=== PATIENT | male | born 1945 | race Caucasian/White ===

== ENCOUNTER → 2018-10-29 | Outpatient (CLI) | payer OTHER ==
[~2018-10-29] MED LIST: REGADENOSON 0.4 MG/5 ML SYRINGE IV ONE
--- NOTE | 2018-10-29 10:31 | ECHOF ---
Referral Reason:Partial Seizure G40.109 MEASUREMENTS -------- HEIGHT: 170.2 cm WEIGHT: 89.8 kg BP: 200/86 RVIDd: 3.1 cm (< 3.3) IVSd: 1.3 cm (0.6 - 1.1) LVIDd: 5.3 cm (3.9 - 5.3) LVPWd: 1.3 cm (0.6 - 1.1) IVSs: 1.7 cm LVIDs: 3.7 cm LVPWs: 2.0 cm LA Diam: 3.9 cm (2.7 - 3.8) LAESV Index (A-L): 38.57 ml/m Ao Diam: 3.7 cm (2.0 - 3.7) AV Cusp: 2.6 cm (1.5 - 2.6) MV EXCURSION: 18.048 mm (> 18.000) MV EF SLOPE: 74 mm/s (70 - 150) EPSS: 0.9 cm MV E Ferdinand: 0.83 m/s MV DecT: 306 ms MV A Ferdinand: 0.97 m/s MV E/A Ratio: 0.85 RAP: 5.00 mmHg RVSP: 33.81 mmHg FINDINGS -------- Sinus rhythm. This was a technically good study. The left ventricular size is normal. There is mild concentric left ventricular hypertrophy. Overa ll left ventricular systolic function is normal with, an EF between 55 - 60 %. The right ventricle is normal in size. LA is moderately dilated 34-39 ml/m2 The right atrium is normal in size. The aortic valve is trileaflet and appears structurally normal. Mild mitral annular calcification present. Mild tricuspid regurgitation present. Right ventricular systolic pressure is normal at < 35 mmHg. Trace/mild (physiologic) pulmonic regurgitation. The aortic root size is normal. Normal inferior vena cava with normal inspiratory collapse consistent with estimated right atrial pre ssure of 5 mmHg. The inferior vena cava is mildly dilated. There is no pericardial effusion. CONCLUSIONS -------- 1. Sinus rhythm. 2. This was a technically good study. 3. The left ventricular size is normal. 4. There is mild concentric left ventricular hypertrophy. 5. Overall left ventricular systolic function is normal with, an EF between 55 - 60 %. 6. The right ventricle is normal in size. 7. LA is moderately dilated 34-39 ml/m2 8. The right atrium is normal in size. 9. The aortic valve is trileaflet and appears structurally normal. 10. Mild mitral annular calcification present. 11. Mild tricuspid regurgitation present. 12. Right ventricular systolic pressure is normal at < 35 mmHg. 13. Trace/mild (physiologic) pulmonic regurgitation. 14. The aortic root size is normal. 15. Normal inferior vena cava with normal inspiratory collapse consistent with estimated right atrial pressure of 5 mmHg. 16. The inferior vena cava is mildly dilated. 17. There is no pericardial effusion. WATER OPERATOR: Cici Bernal RDCS
--- NOTE | 2018-10-29 12:34 | EST ---
EXERCISE STRESS AGE: 72 SEX: M HT: 5'7" WT: 200 PROTOCOL: Lexiscan Cardiolite Stress Test HEART RATE REST: 52 BLOOD PRESSURE REST: 173/75 MAXIMUM HEART RATE ACHIEVED: 74 MAXIMUM BLOOD PRESSURE: 173/75 INDICATIONS: Hypertension. CLINICAL INFORMATION: Baseline EKG shows sinus rhythm, normal axis, normal intervals. The patient was given intravenous Lexiscan as per protocol. Did not have chest pain or diagnostic ST-segment depression. CONCLUSION: 1. Negative stress test by EKG criteria. 2. Cardiolite portion of the stress test will be reported separately. MMODL / IJN: [id number] /
--- NOTE | 2018-10-29 12:39 | NM ---
EXAMINATION TYPE: NM stress lexiscan cardiolite DATE OF EXAM: 10/29/2018 COMPARISON: NONE HISTORY: Partial seizure. Hypertension, diabetes, hyperlipidemia, and family history of coronary jannet ry disease. History of tobacco abuse. TECHNIQUE: After the intravenous administration of 9.98 mCi Tc 99m Sestamibi - Cardiolite resting SP ECT images acquired 50 minutes post injection. The patient received 0.4mg Lexiscan, 25.4 mCi Tc 99m Sestamibi - Stress images obtained [address] injection FINDINGS: Review of stress and rest SPECT images demonstrates no distinct perfusion abnormality. Gated analysi s shows normal wall motion with an estimated left ventricular ejection fraction of 49%. TID is calcul ated within normal limits at 0.94 IMPRESSION: 1. No scintigraphic evidence for reversible ischemia. 2. Abnormal ejection fraction of 49%.
== END | disposition home or self-care (01) ==
LOC: RADNMMAIN 08:05
PROVIDERS: ATTEND Family Medicine
DX: I07.1 Rheumatic tricuspid insufficiency (principal); I37.1 Nonrheumatic pulmonary valve insufficiency; I11.9 Hypertensive heart disease without heart failure; I05.9 Rheumatic mitral valve disease, unspecified; E11.9 Type 2 diabetes mellitus without complications; E78.5 Hyperlipidemia, unspecified; R93.1 Abnormal findings on diagnostic imaging of heart and coronary circulation
CPT/HCPCS: 93017; 93306; 78452; A9500

== ENCOUNTER 2020-03-19 07:51 | Day surgery (SDC) | payer OTHER ==
[2020-03-15 11:31] VITALS: BMI 30.5
[~2020-03-19 07:51] MED LIST changes: +LACTATED RINGERS 1,000 ML IV SCH; -REGADENOSON 0.4 MG/5 ML SYRINGE IV ONE
[2020-03-19 08:11] VITALS: TEMP 97.8
[2020-03-19 08:20] LABS: Glucose,Whole Blood 157 mg/dL (75-99)
[2020-03-19] MEDS ORDERED: LACTATED RINGERS 1,000 ML IV ONE (08:23)
[2020-03-19] MEDS ORDERED: PROPOFOL 10 MG/ML 20 ML VIAL IV ONE (08:53)
[2020-03-19] MEDS ORDERED: LIDOCAINE 1% INJ 10MG/ML (20 ML MDV) ONE (08:53)
[2020-03-19 09:24] VITALS: RESP 16
--- NOTE | 2020-03-19 09:26 | P.PCN ---
Date of Procedure: 03/19/20 Description of Procedure: BRIEF HISTORY: Patient is a 74-year-old male with a history of Norris's esophagus who presents for outpatient EGD for evaluation. No dysphagia or odynophagia. Patient is on omeprazole 40 mg daily. Long-standing history of Norris's esophagus. PROCEDURE PERFORMED: Esophagogastroduodenoscopy with biopsy. PREOPERATIVE DIAGNOSIS: Norris's esophagus. ESTIMATED BLOOD LOSS: Minimal. IV sedation per anesthesia. PROCEDURE: After informed consent was obtained, the patient was brought into the endoscopy unit. IV sedation was administered by Anesthesia under continuous monitoring. Initially the Olympus GIF-190 video endoscope was inserted into the mouth. Esophagus intubated without any difficulty. It was gradually advanced into the stomach and duodenum and carefully examined. The bulb and the second part of the duodenum appeared normal, with biopsies taken. The scope at this time was withdrawn to the stomach, adequately insufflated with air, and upon careful examination, mucosa of the antrum, body, cardia and the fundus appeared normal, with biopsies of antrum and body taken. A few diminutive polyps in the body of the stomach likely representing fundic gland polyps. The scope was then withdrawn into the esophagus. The GE junction was located at 36 cm from the incisors with a 4 cm hiatal hernia noted. Patient had 10 cm of Norris's esophagus spanning from 26 cm from the incisors to the GE junction at 36 cm from the incisors with multiple biopsies taken of the Norris's esophagus. There was a nodule located 34 cm from the incisors was biopsied. Otherwise the esophagus appeared normal. The patient tolerated the procedure well. IMPRESSION: 1. Esophageal nodule in distal esophagus were centimeters from the incisors with biopsies taken. 2. Norris's esophagus, biopsied. 3. Hiatal hernia. 4. Biopsies of the duodenum and antrum and body. RECOMMENDATIONS: The findings of this examination were discussed with the patient and his family. Okay to resume diet. Continue current medical management. Would recommend referral to tertiary center for endoscopic ultrasound and possible EMR of distal esophageal nodule in the setting of Norris's esophagus changes been explained to the patient at length.
[2020-03-19 09:37] VITALS: BP 152/72; PULSE 47
== END 2020-03-19 10:08 | disposition home or self-care (01) ==
LOC: ORWHC2ENDO 07:51
PROVIDERS: ATTEND Internal Medicine
DX: K22.70 Barrett's esophagus without dysplasia (principal); K29.50 Unspecified chronic gastritis without bleeding; K22.8 Other specified diseases of esophagus; K44.9 Diaphragmatic hernia without obstruction or gangrene; I10 Essential (primary) hypertension; E11.9 Type 2 diabetes mellitus without complications; K21.9 Gastro-esophageal reflux disease without esophagitis; F17.290 Nicotine dependence, other tobacco product, uncomplicated; E66.9 Obesity, unspecified; Z68.31 Body mass index [BMI] 31.0-31.9, adult; Z79.899 Other long term (current) drug therapy; Z79.84 Long term (current) use of oral hypoglycemic drugs; Z79.1 Long term (current) use of non-steroidal anti-inflammatories (NSAID); Z98.890 Other specified postprocedural states
CPT/HCPCS: 43239; 88305; 88313; J2001; J2704

== ENCOUNTER → 2024-11-25 | Outpatient (CLI) | payer OTHER ==
--- NOTE | 2024-11-25 11:12 | US ---
EXAMINATION TYPE: US kidneys/renal and bladder DATE OF EXAM: 11/25/2024 COMPARISON: NONE CLINICAL INDICATION: Male, 79 years old with history of R94.4 ABNORMAL RESULTS OF KIDNEY FUNCTION KATHY DIES; Abnormal labs. Patient states no symptoms TECHNIQUE: Grayscale imaging of the bilateral kidneys and urinary bladder: FINDINGS: EXAM MEASUREMENTS: Right Kidney: 11.6 x 6.9 x 6.6 cm Left Kidney: 12.2 x 4.4 x 5.6 cm Right Kidney: Mid isoechoic mass= 6.8 x 4.9 x 4.3 cm Left Kidney: Mid pedunculated cortical anechoic= 2.1 x 1.9 x 1.5 cm. Mid medial anechoic lesion = 1.6 x 1.6 x 1.3 cm Bladder: anechoic Left jet seen There is no evidence for hydronephrosis at this point in time. No nephrolithiasis is seen. Mid right renal heterogenous isoechoic mass measuring up to 6.8 cm with increased color flow. Exophytic left r enal mid cortical cyst measuring up to 2.1 cm. Mid left kidney simple cysts measuring up to 1.6 cm. T he urinary bladder is anechoic. IMPRESSION: 1. Heterogenous 6.8 cm right renal mass with increased color flow. Raises concern for renal malignanc y. Further evaluation is recommended with CT or MR abdomen (renal mass protocol). 2. No hydronephrosis or nephrolithiasis. 3. Simple left renal cyst. [facility], , 11/25/2024 11:10 AM
== END | disposition home or self-care (01) ==
LOC: RADUSWWP 10:30
PROVIDERS: ATTEND Family Medicine
DX: N28.1 Cyst of kidney, acquired (principal); R94.4 Abnormal results of kidney function studies; N28.89 Other specified disorders of kidney and ureter
CPT/HCPCS: 76770

== ENCOUNTER → 2024-12-16 | Outpatient (CLI) | payer OTHER ==
[2024-12-16 11:11] LABS: Appearance,Urine Clear (Clear); Bilirubin,Urine Negative (Negative); Blood,Urine Negative (Negative); Color,Urine Light Yellow; Glucose,Urine (UA) Negative (Negative); Ketones,Urine Negative (Negative); Leukocyte Esterase,Urine Negative (Negative); Nitrite,Urine Negative (Negative); PH, Urine 5.5 (5.0-8.0); Protein,Urine Negative (Negative); Specific Gravity,Urine 1.009 (1.001-1.035); Urobilinogen,Urine <2.0 mg/dL (<2.0)
[2024-12-16 15:01] LABS: Basophils # (A) 0.04 X 10*3/uL (0.00-0.10); Basophils % (A) 1.4 %; Eosinophils # (A) 0.06 X 10*3/uL (0.04-0.35); HCT 27.8 % (39.6-50.0); HGB 9.9 g/dL (13.0-17.0); Lymphocytes # (A) 0.98 X 10*3/uL (0.90-5.00); Lymphocytes % (A) 33.3 %; MCH 33.3 pg (27.0-32.0); MCHC 35.6 g/dL (32.0-37.0); MCV 93.6 FL (80.0-97.0); Mean Platelet Volume 10.2 FL (9.5-12.2); Monocytes # (A) 0.34 X 10*3/uL (0.20-1.00); Monocytes % (A) 11.6 %; NRBC Per 100 WBC 0 X 10*3/uL (0.00-0.01); Neutrophils # (A) 1.51 X 10*3/uL (1.80-7.70); Neutrophils % (A) 51.4 %; Platelet Count 162 X 10*3/uL (140-440); RBC 2.97 X 10*6/uL (4.40-5.60); RDW 12.7 % (11.5-14.5); WBC 2.94 X 10*3/uL (4.50-10.00)
[2024-12-16 15:34] LABS: BUN/Creat Ratio 18.83 Ratio (12.00-20.00); Blood Urea Nitrogen 22.6 mg/dL (9.0-27.0); Glucose 103 mg/dL (70-110)
[2024-12-16 15:35] LABS: ALT 7 U/L (10-49); AST 20 U/L (14-35); Albumin 3.7 g/dL (3.8-4.9); Albumin/Globulin Ratio 1.85 Ratio (1.60-3.17); Alkaline Phosphatase 77 U/L (41-126); Calcium 9.2 mg/dL (8.7-10.3); Carbon Dioxide 26.8 mmol/L (21.6-31.8); Chloride 90 mmol/L (96-109); Magnesium 1.2 mg/dL (1.5-2.4); Phosphorus 3.4 mg/dL (2.4-5.1); Potassium 4.3 mmol/L (3.5-5.5); Sodium 128 mmol/L (135-145); Total Bilirubin 0.4 mg/dL (0.3-1.2); Total Protein 5.7 g/dL (6.2-8.2)
== END | disposition home or self-care (01) ==
LOC: LABWHC1 09:48
PROVIDERS: ATTEND Internal Medicine
DX: D64.0 Hereditary sideroblastic anemia (principal); N39.0 Urinary tract infection, site not specified; R39.9 Unspecified symptoms and signs involving the genitourinary system
CPT/HCPCS: 36415; 80053; 81003; 83735; 84100; 85025

== ENCOUNTER → 2025-01-03 | Outpatient (CLI) | payer OTHER ==
--- NOTE | 2025-01-03 09:37 | MR ---
EXAMINATION TYPE: MR kidney wo/w con DATE OF EXAM: 01/03/2025 9:23 AM INDICATION: Patient age:Male; 79 years old; Reason for study: C64.9 MALIGNANT NEOPLASM OF UNSP KIDNEY; [facility]. COMPARISON: Renal ultrasound 11/25/2024 TECHNIQUE: Multiplanar multi-sequence imaging was performed without and with IV contrast. The patie nt was given 7 ccs of Gadobutrol intravenously and dynamic imaging was performed. Post IV contrast harmon btraction images were also submitted for review. FINDINGS: LOWER CHEST: No gross irregularity. ABDOMEN Liver: Noncirrhotic morphology. No focal lesion. Dropped out of signal on in phase imaging. Gallbladder and Bile ducts: Unremarkable. Pancreas: Unremarkable. Spleen: Not enlarged. Drop out of signal on in phase imaging. Adrenal glands: Unremarkable. Kidneys: No hydronephrosis. Several T2 hyperintense and wall simple cyst involving the left kidney wi th largest measuring up to 1.9 cm. Heterogenous enhancing right renal mass involving the mid portions. This measures 4.5 x 6.5 x 4.8 cm in (AP, TV, CC dimensions) with extension into the renal sinus. No definitive extension into the se l vein, IVC or renal artery. There is central regions of lack of enhancement likely representing necr osis. No hydroureter. Difficult to exclude invasion into the collecting system. Stomach and Bowel: Postsurgical changes with susceptibility artifact involving the esophagus and stom ach. Scattered distal colonic diverticulosis without evidence for acute diverticulitis. Peritoneum: No evidence of pneumoperitoneum, free fluid, or adenopathy. Vasculature: Unremarkable. No aortic aneurysm. Abdominal wall: Unremarkable. Musculoskeletal: Multilevel degenerative disc disease with Schmorl's nodes involving the superior end plate of the lower thoracic spine. IMPRESSION: 1. Right mid kidney heterogenously enhancing 6.5 cm mass highly concerning for renal cell carcinoma until proven otherwise. This extends into the renal sinus without definitive involvement of the renal vein, IVC or renal artery. Difficult to exclude invasion into the collecting system however there is no hydroureter. Urology consult is recommended. 2. No other evidence for metastasis within the visualized abdomen. 3. Postsurgical changes of the esophagus and stomach with susceptibility artifact. 4. 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 [facility], , 01/03/2025 9:35 AM
== END | disposition home or self-care (01) ==
LOC: RADMRIMAIN 07:54
PROVIDERS: ATTEND Family Medicine
DX: C64.1 Malignant neoplasm of right kidney, except renal pelvis (principal); Z98.890 Other specified postprocedural states
CPT/HCPCS: 74183; A9585

== ENCOUNTER → 2025-03-10 | Outpatient (CLI) | payer OTHER ==
--- NOTE | 2025-03-10 13:04 | CT ---
EXAMINATION TYPE: CT chest wo con DATE OF EXAM: 03/10/2025 12:53 PM COMPARISON: None CLINICAL INDICATION: Male, 79 years old with history of C64.1 MALIGNANT NEOPLASM OF RIGHT KIDNEY, EXC EPT R; [facility], kidney CA TECHNIQUE: Multiple axial images were obtained through the chest. Sagittal and coronal reformats were created for review. MIP was performed on a separate workstation. Contrast used: mL of (None if empty) Oral contrast used: (None if empty) CT DLP: 415 mGycm, Automated exposure control for dose reduction was used. FINDINGS: LUNGS/ PLEURA: No focal consolidation, pneumothorax or pleural effusion. AIRWAY: Patent and unremarkable. HEART: Size within normal limits. Mild coronary artery calcifications present. MEDIASTINUM: No gross evidence of adenopathy. Small hiatal hernia. VASCULATURE: No aortic aneurysm. MUSCULOSKELETAL: No acute osseous abnormalities remote injuries to right ribs 9 and 8 noted. SOFT TISSUES/LYMPH NODES: Unremarkable. LOWER NECK: No significant findings. UPPER ABDOMEN: No significant findings. IMPRESSION: 1. No evidence for lymphadenopathy or mass. 2. Small hiatal hernia. [facility], , 03/10/2025 1:01 PM
== END | disposition home or self-care (01) ==
LOC: RADCTMAIN 12:37
PROVIDERS: ATTEND Urology
DX: C64.1 Malignant neoplasm of right kidney, except renal pelvis (principal); K44.9 Diaphragmatic hernia without obstruction or gangrene; Z85.528 Personal history of other malignant neoplasm of kidney
CPT/HCPCS: 71250

== ENCOUNTER → 2025-04-14 | Outpatient (CLI) | payer OTHER ==
[2025-04-14 15:41] LABS: Basophils # (A) 0.05 X 10*3/uL (0.00-0.10); Basophils % (A) 0.8 %; Eosinophils # (A) 0.09 X 10*3/uL (0.04-0.35); Eosinophils % (A) 1.4 %; HCT 29.5 % (39.6-50.0); HGB 10.2 g/dL (13.0-17.0); Immature Grans, Automated 0.30 %; Lymphocytes # (A) 1.03 X 10*3/uL (0.90-5.00); Lymphocytes % (A) 15.7 %; MCH 32.1 pg (27.0-32.0); MCHC 34.6 g/dL (32.0-37.0); MCV 92.8 FL (80.0-97.0); Monocytes # (A) 0.49 X 10*3/uL (0.20-1.00); Monocytes % (A) 7.5 %; NRBC Per 100 WBC 0 X 10*3/uL (0.00-0.01); Neutrophils # (A) 4.87 X 10*3/uL (1.80-7.70); Neutrophils % (A) 74.3 %; Platelet Count 195 X 10*3/uL (140-440); RBC 3.18 X 10*6/uL (4.40-5.60); RDW 12.6 % (11.5-14.5); WBC 6.55 X 10*3/uL (4.50-10.00)
[2025-04-14 15:59] LABS: Anion Gap 11.70 mmol/L (4.00-12.00); BUN/Creat Ratio 14.82 Ratio (12.00-20.00); Blood Urea Nitrogen 16.3 mg/dL (9.0-27.0); Calcium 9.0 mg/dL (8.7-10.3); Carbon Dioxide 27.3 mmol/L (21.6-31.8); Chloride 100 mmol/L (96-109); Glucose 121 mg/dL (70-110); Potassium 4.1 mmol/L (3.5-5.5); Sodium 139 mmol/L (135-145)
== END | disposition home or self-care (01) ==
LOC: LABWHC1 10:19
PROVIDERS: ATTEND Urology
DX: C64.1 Malignant neoplasm of right kidney, except renal pelvis (principal)
CPT/HCPCS: 36415; 80048; 85025

== ENCOUNTER → 2025-04-17 | Outpatient (CLI) | payer OTHER ==
[2025-04-17 15:20] LABS: Basophils # (A) 0.08 X 10*3/uL (0.00-0.10); Basophils % (A) 1.2 %; Eosinophils # (A) 0.15 X 10*3/uL (0.04-0.35); Eosinophils % (A) 2.3 %; HCT 29.9 % (39.6-50.0); HGB 10.2 g/dL (13.0-17.0); Immature Grans, Automated 0.30 %; Lymphocytes # (A) 1.28 X 10*3/uL (0.90-5.00); Lymphocytes % (A) 19.9 %; MCH 32.3 pg (27.0-32.0); MCHC 34.1 g/dL (32.0-37.0); MCV 94.6 FL (80.0-97.0); Monocytes # (A) 0.54 X 10*3/uL (0.20-1.00); Monocytes % (A) 8.4 %; NRBC Per 100 WBC 0 X 10*3/uL (0.00-0.01); Neutrophils # (A) 4.36 X 10*3/uL (1.80-7.70); Neutrophils % (A) 67.9 %; Platelet Count 230 X 10*3/uL (140-440); RBC 3.16 X 10*6/uL (4.40-5.60); RDW 12.8 % (11.5-14.5); WBC 6.43 X 10*3/uL (4.50-10.00)
[2025-04-17 15:34] LABS: Anion Gap 12.00 mmol/L (4.00-12.00); BUN/Creat Ratio 16.64 Ratio (12.00-20.00); Blood Urea Nitrogen 18.3 mg/dL (9.0-27.0); Calcium 8.9 mg/dL (8.7-10.3); Carbon Dioxide 26.0 mmol/L (21.6-31.8); Chloride 103 mmol/L (96-109); Glucose 76 mg/dL (70-110); Potassium 4.1 mmol/L (3.5-5.5); Sodium 141 mmol/L (135-145)
== END | disposition home or self-care (01) ==
LOC: LABPAT 09:43
PROVIDERS: ATTEND Urology
DX: Z01.812 Encounter for preprocedural laboratory examination (principal); C64.1 Malignant neoplasm of right kidney, except renal pelvis
CPT/HCPCS: 80048; 85025

== ENCOUNTER → 2025-04-19 | Outpatient (CLI) | payer OTHER | END | disposition home or self-care (01) | LOC: LABPAT 12:19 | PROVIDERS: ATTEND Anesthesiology | DX: Z01.812 Encounter for preprocedural laboratory examination (principal) | CPT/HCPCS: 36415; 86850; 86900; 86901 ==